=== PATIENT | male | born 1980 | race Two or more races ===

== ENCOUNTER 2019-07-05 23:12 | Inpatient (IN) | payer OTHER ==
[~2019-07-05] VITALS: Ht 167.6 cm; Wt 68.0 kg
== END 2019-07-14 15:30 | disposition expired | DRG 291 ==
LOC: ER 23:12 → ICU-2 07-06 10:01 → SEC-K 07-06 10:01 → ICU 07-06 10:01 → ICU-2 07-06 22:11 → ICU 07-09 03:08
PROVIDERS: ADMIT Student in an Organized Health Care Education/Training Program
PROC: B246ZZZ Ultrasonography of Right and Left Heart (ICD-10-PCS; principal; 2019-07-06)
PROC: BW21ZZZ Computerized Tomography (CT Scan) of Abdomen and Pelvis (ICD-10-PCS; 2019-07-06)
PROC: 4A033R1 Measurement of Arterial Saturation, Peripheral, Percutaneous Approach (ICD-10-PCS; 2019-07-07)
PROC: 0BH17EZ Insertion of Endotracheal Airway into Trachea, Via Natural or Artificial Opening (ICD-10-PCS; 2019-07-09)
PROC: 5A1945Z Respiratory Ventilation, 24-96 Consecutive Hours (ICD-10-PCS; 2019-07-09)
PROC: 4A12X4Z Monitoring of Cardiac Electrical Activity, External Approach (ICD-10-PCS; 2019-07-09)
DX: I11.0 Hypertensive heart disease with heart failure (principal); E05.81 Other thyrotoxicosis with thyrotoxic crisis or storm; K72.00 Acute and subacute hepatic failure without coma; R65.11 Systemic inflammatory response syndrome (SIRS) of non-infectious origin with acute organ dysfunction; J96.01 Acute respiratory failure with hypoxia; K65.0 Generalized (acute) peritonitis; I47.1 Supraventricular tachycardia; N17.8 Other acute kidney failure; R18.8 Other ascites; K57.20 Diverticulitis of large intestine with perforation and abscess without bleeding; E87.4 Mixed disorder of acid-base balance; I46.8 Cardiac arrest due to other underlying condition; E87.5 Hyperkalemia; I50.43 Acute on chronic combined systolic (congestive) and diastolic (congestive) heart failure; I08.0 Rheumatic disorders of both mitral and aortic valves; I48.2 Chronic atrial fibrillation; Z79.01 Long term (current) use of anticoagulants